=== PATIENT | male | born 1940 | race Caucasian/White ===

== ENCOUNTER 2018-11-17 09:26 | Outpatient (CLI) | payer MEDICARE, BC ==
[2018-11-09 11:09] VITALS: BMI 35.2
--- NOTE | 2018-11-17 11:44 | RAD ---
LUMBAR SPINE SERIES 4 VIEWS INCLUDING FLEXION AND EXTENSION: Date: 11/17/18 HISTORY: Back pain, difficulty walking. FINDINGS: There is moderate scoliotic change of the spine convex to the right. There is severe degenerative dis c narrowing at all of the vertebral body levels and prominent degenerative facet changes. Limited mot ion seen on either the flexion or extension views. No abnormal translation of the vertebral bodies. N o spondylolisthesis. Extensive atherosclerotic change of the aorta is noted. IMPRESSION: Scoliosis and severe arthritic changes of the spine. POS: TPC
--- NOTE | 2018-11-17 11:50 | RAD ---
CERVICAL SPINE SERIES 5 VIEWS WITH FLEXION AND EXTENSION: HISTORY: Neck and bilateral shoulder pain. FINDINGS: The vertebral bodies are normal in height. There is degenerative disk narrowing at the C5-6 and C6-7 levels. The C7 vertebral body is not well visualized on this exam. There is a minimal anterolisthe sis of C4 on C5 not definitely changing between the flexion and extension views. Degenerative facet changes are present. Vascular calcifications in the carotid bulb regions are noted. IMPRESSION: Mild arthritic changes of the cervical spine. POS: TPC
--- NOTE | 2018-11-17 12:37 | MRI ---
MRI CERVICAL SPINE WITHOUT CONTRAST: INDICATION: Bilateral shoulder pain and difficulty walking for 3 months. COMPARISON: Cervical spinal radiograph dated 11/17/2018. FINDINGS: There is mild anterior translation of C5 on C6 which his likely degenerative. Visualized posterior fossa is unremarkable-appearing. Bone marrow signal intensity appears within normal limits. Craniocervical junction on the sagittal images appears within normal limits. At C2-C3, there is a broad-based bulge with facet hypertrophy without appreciable central canal or ne ural foraminal narrowing. At C3-4, there is an asymmetric to the right broad-based disk bulge with ligamentum flavum hypertroph y inducing moderate central canal narrowing with mild ventral and posterior cord flattening. There i s uncovertebral hypertrophy and facet joint degenerative change inducing severe right and mild to mod erate left neural foraminal narrowing. At C4-5, there is uncovertebral hypertrophy and facet joint degenerative change inducing moderate to severe bilateral neural foraminal narrowing and mild central canal narrowing. At C5-6, there is facet hypertrophy and uncovertebral hypertrophy in addition to a broad-based disk b ulge inducing moderate to severe bilateral neural foraminal narrowing and mild central canal narrowin g. At C7-T1, there is an asymmetric to the right disk-osteophyte complex inducing severe right and mild left neural foraminal narrowing. IMPRESSION: 1. Moderate central canal narrowing at C3-4 due to a broad-based disk bulge and ligamentum flavum hy pertrophy causing mild cord flattening, but no definite cord signal abnormality. 2. Prominent neural foraminal narrowing seen at C3-4 through C7-T1. POS: OFF
--- NOTE | 2018-11-17 13:06 | MRI ---
MRI LUMBAR SPINE WITHOUT CONTRAST: INDICATION: Difficulty walking for 3 months. COMPARISON: Lumbar spinal radiograph dated 11/17/2018. FINDINGS: There is multilevel loss of the normal disk signal and height. There is some heterogeneous marrow si gnal intensity likely related to some red marrow hyperplasia. No enlarged lymph nodes are evident wi thin the retroperitoneum. There is dextroscoliosis of the lumbar spine. No acute fracture is demonstrated. At L5-S1, there is a broad-based disk bulge with facet hypertrophy inducing moderate central canal na rrowing with mild to moderate right and mild left neural foraminal narrowing. At L4-5, there is broad-based disk-osteophyte complex with facet joint degenerative change inducing s evere central canal narrowing with moderate to severe bilateral neural foraminal narrowing. At L3-4, there is a broad-based disk-osteophyte complex with facet joint degenerative change inducing moderate central canal narrowing and moderate left and mild right neural foraminal narrowing. At L2-3, there is a disk-osteophyte complex with facet joint degenerative change inducing mild centra l canal narrowing with moderate left and mild right neural foraminal narrowing. At L1-2, there is a broad-based disk-osteophyte complex inducing mild central canal narrowing with mi ld bilateral neural foraminal narrowing. At T12-L1, there is a mild broad-based bulge, but no appreciable central canal or neural foraminal na rrowing. IMPRESSION: 1. Multilevel central canal and neural foraminal narrowing. The central canal narrowing is most sev ere at the L4-5 and L3-4 levels. 2. Prominent multilevel neural foraminal narrowing. POS: OFF
--- NOTE | 2018-11-17 13:27 | MRI ---
MRI OF THE THORACIC SPINE WITHOUT CONTRAST: INDICATION: Bilateral shoulder pain and difficulty walking for 3 months. COMPARISON: None. FINDINGS: At the T1-T2 level, there is a broad-based disk-osteophyte complex causing mild bilateral neural fora isha narrowing. At T2-T3, there is no appreciable central canal or neural foraminal narrowing. At T3-T4, there is a small left paracentral protrusion, but no appreciable central canal or neural fo raminal narrowing. At T4-5, there is no appreciable central canal or neural foraminal narrowing. At T5-6, there is no appreciable central canal or neural foraminal narrowing. At T6-7, there is a small right paracentral disk protrusion causing mild ventral effacement of the sp inal cord without definite cord signal abnormality. At T7-8, there is a cephalad extending disk extrusion causing mild ventral effacement of the thoracic spinal cord without cord signal abnormality. At T8-T9, there is a small central protrusion. At T9-T10, there is a right paracentral cephalad-extending disk extrusion causing mild ventral efface ment of the subarachnoid space without definite cord contact. At T10-T11, there is some mild facet joint degenerative change on the right inducing mild right neura l foraminal narrowing. At T11-12, there is a broad-based bulge with facet hypertrophy inducing mild bilateral neural foramin al narrowing. At T12-L1, there is a mild broad-based bulge, but no appreciable central canal or neural foraminal na rrowing. IMPRESSION: 1. Multilevel protrusions and extrusions extending from approximately T6 through the T10 vertebral l evel. 2. Mild bilateral neural foraminal narrowing at T1-T2 and T11-T12. POS: OFF
== END 2018-11-17 09:27 | disposition home or self-care (01) ==
LOC: TBSIIMAG 09:26
PROVIDERS: ATTEND Physician Assistant Surgical
DX: M54.5 Low back pain (principal); R27.0 Ataxia, unspecified; M25.559 Pain in unspecified hip; M47.812 Spondylosis without myelopathy or radiculopathy, cervical region; M47.816 Spondylosis without myelopathy or radiculopathy, lumbar region; M41.9 Scoliosis, unspecified; M51.24 Other intervertebral disc displacement, thoracic region; M48.04 Spinal stenosis, thoracic region; M48.061 Spinal stenosis, lumbar region without neurogenic claudication; M48.02 Spinal stenosis, cervical region; M50.21 Other cervical disc displacement, high cervical region; M48.03 Spinal stenosis, cervicothoracic region
CPT/HCPCS: 72050; 72100; 72141; 72146; 72148

== ENCOUNTER 2019-01-04 10:07 | Day surgery (SDC) | payer MEDICARE, BC ==
[2019-01-04 11:04] LABS: #Basophils 0.1 thou/uL (0.0-0.2); #Eosinphils 0.5 thou/uL (0.0-0.7); #Lymphocytes 1.5 thou/uL (1.20-3.40); #Monocytes 0.6 thou/uL (0.11-0.59); #Neutrophils 3.8 thou/uL (1.40-6.50); %Basophils 1.2 % (0.0-1.0); %Eosinophils 7.8 % (0.0-10.0); %Lymphocytes 22.8 % (21.0-51.0); %Monocytes 8.5 % (0.0-10.0); %Neutrophils 59.7 % (42.0-75.0); Hemoglobin 15.6 g/dL (14.0-18.0); Mean Corpuscular HGB CONC 34.3 g/dL (32.0-36.0); Mean Corpuscular Hemoglobin 30.5 pg (27.0-31.0); Mean Corpuscular Volume 88.9 fL (78.0-98.0); Mean Platelet Volume 7.2 fL (7.4-10.4); Platelet Count 183 thou/uL (130-400); RBC Distribution Width 12.2 % (11.5-14.5); Red Blood Cell (RBC) Count 5.11 mill/uL (4.70-6.10); White Blood Cell (WBC) Count 6.4 thou/uL (4.8-10.8)
[2019-01-04 11:12] LABS: PTT 33.5 SEC (22.9-36.1); Prothrombin Time 13.2 SEC (12.0-14.7)
[2019-01-04 11:28] LABS: Anion Gap 13 mmol/L (10-20); BUN (Urea Nitrogen) 16 mg/dL (8.4-25.7); Calc. Creatinine Clearance 107 mL/min (70-130); Calcium 10.2 mg/dL (7.8-10.44); Carbon Dioxide 29 mmol/L (23-31); Chloride 100 mmol/L (98-107); Estimated GFR-MDRD 78; Glucose 127 mg/dL (83-110); Potassium 4.5 mmol/L (3.5-5.1); Sodium 137 mmol/L (136-145)
[2019-01-04] MEDS ORDERED: Fentanyl 100 MCG/2 ML VIAL ONE ×4 (12:48→16:41)
[2019-01-04] MEDS ORDERED: Ondansetron HCl/PF 4 MG/2 ML Vial IVP PRN (13:04)
[2019-01-04] MEDS ORDERED: Sodium Chloride 0.9% 10 ML ONE (13:16)
[2019-01-04] MEDS ORDERED: Thrombin 5000 UNITS/5 ML VIAL ONE (13:16)
[2019-01-04] MEDS ORDERED: traMADol HCl 50 MG TAB PO PRN (15:57)
[2019-01-04] MEDS ORDERED: Acetaminophen/Codeine 30-300mg Tablet PO PRN (15:57)
[2019-01-04] MEDS ORDERED: tiZANidine HCl 4 MG TAB PO PRN (15:57)
[2019-01-04] MEDS ORDERED: Milk Of Magnesia 30 ML UDCUP PO PRN (15:57)
[2019-01-04] MEDS ORDERED: Bisacodyl 10 MG SUPP PR PRN (15:57)
[2019-01-04] MEDS ORDERED: Acetaminophen 325 MG TAB PO PRN (15:57)
[2019-01-04] MEDS ORDERED: Ondansetron PF 4 MG/2 ML Vial IVP PRN (15:57)
[2019-01-04] MEDS ORDERED: Fleet Enema 133 ML BOT PR PRN (15:57)
[2019-01-04] MEDS ORDERED: Morphine 2 MG/ML SYRINGE SLOW IVP PRN (15:57)
[2019-01-04] MEDS ORDERED: HYDROcodone/Acetaminophen 7.5/325 mg Tablet PO PRN (15:57)
[2019-01-04] MEDS ORDERED: Mag-Al 1200 mg/1200 mg/30 ML UDCUP PO PRN (15:57)
[2019-01-04] MEDS: Sodium Chloride 0.9% 1,000 ML IV SCH (16:00)
[2019-01-04] MEDS: metFORMIN 500 MG TAB PO SCH (17:00)
[2019-01-04] MEDS ORDERED: Labetalol HCl 100 MG/20 ML VIAL ONE (17:00)
[2019-01-04] MEDS ORDERED: CEFAZOLIN 2 GM in Premix Bag 1 BAG IVPB SCH (19:00)
[2019-01-04] MEDS: Magnesium Oxide 400 MG TAB PO SCH (20:48)
[2019-01-04] MEDS: Atorvastatin Calcium 10 MG TAB PO SCH (20:48)
[2019-01-04] MEDS ORDERED: POTASSIUM CITRATE 15 MEQ PO SCH (21:00)
[2019-01-04] MEDS: CEFAZOLIN 2 GM in Premix Bag 1 BAG IVPB SCH (22:49)
[2019-01-05] MEDS ORDERED: Tamsulosin HCl 0.4 MG CAP PO SCH ×3 (00:45→21:00)
--- NOTE | 2019-01-05 06:50 | OP ---
DATE OF PROCEDURE: 01/04/2019 PREPROCEDURE DIAGNOSES: Cervical stenosis with myelopathy C3-C4. POSTPROCEDURE DIAGNOSES: Cervical stenosis with myelopathy C3-C4. PROCEDURES PERFORMED: 1. Anterior C3-C4 diskectomy for decompression of spinal cord nerve roots. 2. Preparation of endplates, placement of interbody spacer packed with local bone autograft obtained at same incision, and allograft C3-C4 for arthrodesis. 3. Anterior cervical plate and screw fixation, C3-C4. 4. Use of operative microscope for microdissection. DESCRIPTION OF PROCEDURE: After informed consent was obtained from the patient, the patient was brought to the OR. Proper patient, pause, and identification were carried out. He was placed under excellent endotracheal anesthesia and positioned supine on the OR table. Right linear gilson was made in the neck crease to allow for approach to C3-C4 segment. This region was sterilely cleansed, prepared, and draped. Proper patient, pause, identification were carried out. The wound was then opened in a combination of sharp, monopolar, and blunt dissection. We proceeded medial to the laryngeal pharyngeal bundle, medial to the right carotid sheath, we identified the prevertebral layer of deep cervical fascia. Retractors were placed. The longus colli muscle was swept laterally. Localization film confirmed our area of interest. We then performed distraction at C3-C4. The microscope was brought in for microdissection as C3-C4 diskectomy was performed with decompression of spinal cord nerve roots. We then maximized hemostasis throughout. An interbody spacer appropriate dimension was placed at C3-C4 and plate and screws were placed. Final tightening, copious irrigation occurred throughout as did maximizing hemostasis. The wound was then closed in anatomic layers over drain. The patient emerged from anesthesia. Job ID: [id number]
[2019-01-05 07:24] VITALS: BMI 34.4
[2019-01-05] MEDS: Lisinopril/Hydrochlorothiazide 20 mg/12.5 mg Tablet PO SCH (08:01)
[2019-01-05] MEDS: metFORMIN 500 MG TAB PO SCH ×2 (08:01→17:46)
[2019-01-05] MEDS: CEFAZOLIN 2 GM in Premix Bag 1 BAG IVPB SCH ×3 (08:02→22:26)
--- NOTE | 2019-01-05 08:02 | RAD ---
Intraoperative imaging of the cervical spine: 01/04/2019 HISTORY: ACDF FINDINGS: 2 coned down radiographs of the cervical spine are provided, obtained during surgery. Provi ded images demonstrate placement of anterior discectomy and fusion hardware at the C3-4 level. IMPRESSION: Intraoperative imaging as above.
[2019-01-05] MEDS ORDERED: Prevnar 13-Val Conj/PF 0.5 ML SYRINGE IM ONE (08:15)
[2019-01-05] MEDS ORDERED: FLU VACC TS2019-20(65YR UP)/PF 180 MCG/0.5 ML SYRINGE IM ONE (08:15)
[2019-01-05] MEDS ORDERED: Dexamethasone 6 MG in Sodium Chloride 0.9% 50 ML IVPB SCH (09:00)
--- NOTE | 2019-01-05 09:41 | PRG ---
DATE OF SERVICE: 01/05/2019 This is Donato Rowell PA-C dictating a report for Rosalio Dozier MD. Mr. Lopez is postoperative day #1 having undergone C3-[address] Dozier. The patient's surgery was without complication and a drain was placed. The patient has good improvement in his posterior neck pain as well as in his bilateral upper extremity arm aching. He has had resolution of right shoulder pain. He has not yet up been walking because he has not had his Byram J collar fitted. Nursing has contacted for this to be fitted this morning. He may begin to ambulate and work with therapies once the collar is in place. The patient is complaining of some significant hoarseness and swallowing difficulties. He is also complaining of reflux. I have started him on Protonix and he did get one dose of 6 mg of Decadron. I have repeated this, this morning as a one time dose. He has had some urinary retention. I have ordered bladder scans and I ordered for Garcia should this be required after the third in and out catheterization if there are more than 300 mL in his bladder. I have also initiated daily Flomax. The patient likely will benefit from inpatient rehab and the paperwork and consults have been placed. The patient remains with excellent strength in all the extremities although he does have some dysphonia on exam. His drain output has been rather minimal, but will leave this in place as the patient will be staying at least one more overnight. Please call with any changes in patient's neurologic status. Otherwise, we will ask the patient to continue to heal postoperatively. Job ID: [id number]
[2019-01-05] MEDS: Pantoprazole 40 MG VIAL IVP SCH (10:14)
[2019-01-05] MEDS: Atorvastatin Calcium 10 MG TAB PO SCH (21:46)
[2019-01-05] MEDS: Sodium Chloride 0.9% 1,000 ML IV SCH (21:47)
[2019-01-05] MEDS: Magnesium Oxide 400 MG TAB PO SCH (21:47)
[2019-01-06] MEDS: CEFAZOLIN 2 GM in Premix Bag 1 BAG IVPB SCH (04:55)
[2019-01-06] MEDS: metFORMIN 500 MG TAB PO SCH (07:53)
[2019-01-06] MEDS: Lisinopril/Hydrochlorothiazide 20 mg/12.5 mg Tablet PO SCH (07:53)
[2019-01-06] MEDS: Pantoprazole 40 MG VIAL IVP SCH (07:53)
[2019-01-06 12:19] VITALS: BP 115/71; TEMP 97.8
--- NOTE | 2019-01-09 07:47 | DIS ---
DATE OF ADMISSION: 01/04/2019 DATE OF DISCHARGE: 01/06/2019 This is Candace Gerard PA-C dictating a report for Rosalio Dozier MD. The patient is a 78-year-old male, recently known to Dr. Dozier service for significant cervical stenosis with cervical myelopathy, who underwent C3 through C4 ACDF on 01/04/2019. Following the surgery, he was transitioned to the Med/Surg floor, where his pain has been well controlled with p.o. medications, he is tolerating regular diet. He did have some issues with urinary retention, which required a postop placement of a Garcia. He was started on Flomax. He had significant improvement in his walking and had worked with Physical Therapy. He was walking up and down the halls without significant difficulty. He had been compliant with his cervical collar. On my exam this morning, the patient is awake, alert, in no acute distress. His SOO drain output has trended down and only had 30 mL overnight. He has free active range of motion in all extremities. No focal motor weakness is appreciated on my exam in the bed. His SOO drain is trending downwards and we will remove today on postoperative day #2. I have discussed his urinary retention with his urologist, Dr. Carri retana in [place] and the patient is to call Tuesday to set a followup appointment for recheck and possible removal of Garcia as outpatient in their office. I will discharge him on [place] and Flomax. The patient is to follow up with Dr. Dozier in approximately 2 weeks. I have discussed home care precautions. It is of note that initially we had planned to send him to inpatient rehab, but the patient is doing so well postoperatively that he preferred to go home and therefore this was arranged. Job ID: [id number]
--- NOTE | 2019-01-09 10:25 | EKG ---
Test Reason : PREOP Blood Pressure : / mmHG Vent. Rate : 059 BPM Atrial Rate : 059 BPM P-R Int : 238 ms QRS Dur : 106 ms QT Int : 424 ms P-R-T Axes : 021 -05 073 degrees QTc Int : 419 ms Sinus bradycardia with 1st degree A-V block Otherwise normal ECG When compared with ECG of 10-JAN-1995 14:16, TN interval has increased Confirmed by MISSY RÍOS, DEBRA ([id number]) on 01/09/2019 10:25:20 AM Referred By: WILLIAM Confirmed By:DEBRA LOUIS MD
== END 2019-01-06 13:31 | disposition home or self-care (01) ==
LOC: SDC 10:07 → SURG B 18:31 → SDC 01-06 13:31
PROVIDERS: ATTEND Surgery
PROC: 0RG10A0 Fusion of Cervical Vertebral Joint with Interbody Fusion Device, Anterior Approach, Anterior Column, Open Approach (ICD-10-PCS; principal; 2019-01-04)
PROC: 0RT30ZZ Resection of Cervical Vertebral Disc, Open Approach (ICD-10-PCS; 2019-01-04)
DX: M48.02 Spinal stenosis, cervical region (principal); G95.89 Other specified diseases of spinal cord; M54.12 Radiculopathy, cervical region; I10 Essential (primary) hypertension; E78.5 Hyperlipidemia, unspecified; Z87.891 Personal history of nicotine dependence; Z79.1 Long term (current) use of non-steroidal anti-inflammatories (NSAID); Z79.82 Long term (current) use of aspirin; Z79.84 Long term (current) use of oral hypoglycemic drugs; Z79.899 Other long term (current) drug therapy
CPT/HCPCS: 20930; 20936; 22551; 22845; 22853; 76000; 80048; 82962; 85025; 85610; 85730; 90662; 93005; 97116 ×2; 97139 ×3; 97535; C1713; C1776; G0008; 36416; 90471; 93010; C9113; J0690; J1100; J3010; J3490

== ENCOUNTER 2019-04-04 08:53 | Outpatient (CLI) | payer MEDICARE, BC ==
--- NOTE | 2019-04-04 10:41 | RAD ---
CERVICAL SPINE THREE VIEWS: HISTORY: Bilateral shoulder pain. Difficulty walking. Prior ACDF. FINDINGS: Anterior cervical fusion changes are noted involving C3-C4. C6, C7 and T1 are obscured or partially o bscured on the lateral view and the odontoid and C1 are partially obscured on the AP open-mouth view. No significant change in alignment. No abnormal soft tissue swelling. IMPRESSION: Anterior cervical fusion changes at C3-C4. POS: OFF
== END 2019-04-04 08:54 | disposition home or self-care (01) ==
LOC: TBSIIMAG 08:53
PROVIDERS: ATTEND Surgery
DX: M50.00 Cervical disc disorder with myelopathy, unspecified cervical region (principal); Z98.1 Arthrodesis status
CPT/HCPCS: 72040

== ENCOUNTER 2019-04-27 06:07 | Inpatient (IN) | payer MEDICARE, BC ==
[2019-04-26 10:40] VITALS: BMI 35.8
[2019-04-27] MEDS ORDERED: Fentanyl 250 MCG/5 ML VIAL ONE (06:52)
[2019-04-27 07:05] LABS: Hemoglobin 14.9 g/dL (14.0-18.0); Mean Corpuscular HGB CONC 34.7 g/dL (32.0-36.0); Mean Corpuscular Hemoglobin 30.7 pg (27.0-31.0); Mean Corpuscular Volume 88.5 fL (78.0-98.0); Mean Platelet Volume 7.3 fL (7.4-10.4); Platelet Count 156 thou/uL (130-400); RBC Distribution Width 11.8 % (11.5-14.5); Red Blood Cell (RBC) Count 4.86 mill/uL (4.70-6.10); White Blood Cell (WBC) Count 6.1 thou/uL (4.8-10.8)
[2019-04-27 07:08] LABS: PTT 33.8 SEC (22.9-36.1); Prothrombin Time 12.7 SEC (12.0-14.7)
[2019-04-27] MEDS ORDERED: Sodium Chloride 0.9% 10 ML ONE (07:09)
[2019-04-27] MEDS ORDERED: Thrombin 5000 UNITS/5 ML VIAL ONE (07:09)
[2019-04-27 07:22] LABS: Anion Gap 16 mmol/L (10-20); BUN (Urea Nitrogen) 21 mg/dL (8.4-25.7); Calc. Creatinine Clearance 108 mL/min (70-130); Calcium 9.5 mg/dL (7.8-10.44); Carbon Dioxide 26 mmol/L (23-31); Chloride 102 mmol/L (98-107); Estimated GFR-MDRD 79; Glucose 142 mg/dL (83-110); Potassium 4.6 mmol/L (3.5-5.1); Sodium 139 mmol/L (136-145)
[2019-04-27] MEDS ORDERED: Ondansetron PF 4 MG/2 ML Vial ONE (10:09)
[2019-04-27] MEDS ORDERED: Lidocaine 1% PF 5 ML VIAL ONE (10:09)
[2019-04-27] MEDS ORDERED: Glycopyrrolate 0.2 MG/ML 5 ML SYRINGE ONE (10:09)
[2019-04-27] MEDS ORDERED: PHENYLEPHRINE-NS 100 MCG/ML 10 ML SYRINGE ONE (10:09)
[2019-04-27] MEDS ORDERED: Dexamethasone 20 MG/5 ML VIAL ONE (10:09)
[2019-04-27] MEDS ORDERED: EPHEDRINE 25 MG/5 ML SYRINGE ONE (10:09)
[2019-04-27] MEDS ORDERED: Rocuronium Bromide 10 MG/ML (10ML VIAL) ONE (10:09)
[2019-04-27] MEDS ORDERED: Bisacodyl 10 MG SUPP PR PRN (11:33)
[2019-04-27] MEDS ORDERED: Fleet Enema 133 ML BOT PR PRN (11:33)
[2019-04-27] MEDS ORDERED: Milk Of Magnesia 30 ML UDCUP PO PRN (11:33)
[2019-04-27] MEDS ORDERED: Acetaminophen 325 MG TAB PO PRN (11:33)
[2019-04-27] MEDS ORDERED: Mag-Al 1200 mg/1200 mg/30 ML UDCUP PO PRN (11:33)
[2019-04-27] MEDS ORDERED: traMADol HCl 50 MG TAB PO PRN (11:33)
[2019-04-27] MEDS ORDERED: Promethazine HCl 25 MG/ML VIAL SLOW IVP PRN (11:41)
[2019-04-27] MEDS ORDERED: Promethazine HCl 25 MG/ML VIAL IM PRN (11:41)
[2019-04-27] MEDS ORDERED: Ondansetron HCl/PF 4 MG/2 ML Vial IVP PRN (11:41)
[2019-04-27] MEDS ORDERED: Fentanyl 100 MCG/2 ML VIAL ONE ×2 (11:52→12:23)
--- NOTE | 2019-04-27 11:53 | OP ---
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 POSTPROCEDURE DIAGNOSIS: L2-S1 stenosis with low back and leg pain with neurogenic claudication. PROCEDURES: L2-L3, L3-L4, L4-L5, L5-S1 laminectomies, partial facetectomies, and foraminotomies. DESCRIPTION OF PROCEDURE: After informed consent was obtained from the patient, the patient was brought to the OR. Proper patient, pause, and identification were carried out. He was positioned prone on the OR table after anesthesia and a linear gilson made over the L2-S1 dorsal spines. This region was sterilely cleansed, prepared, and draped. Proper patient, pause, and identification were carried out. The wound was then opened with a combination of sharp, monopolar, and blunt dissection. The P7-A8-J3-L5-S1 dorsal spines and lamina were exposed. Localization film confirmed area of interest. We then performed Y1-R2-R7-L5-S1 laminectomies, partial facetectomies, foraminotomies with excellent decompression of the common dural tube and nerve roots. There was no spinal fluid leak. Copious irrigation. Hemostasis occurred throughout. We then closed the wound in anatomic layers following sprinkling of vancomycin powder. The patient emerged from anesthesia. Job ID: [id number]
[2019-04-27] MEDS: Sodium Chloride 0.9% 1,000 ML IV SCH (13:45)
[2019-04-27] MEDS: HYDROcodone/Acetaminophen 7.5/325 mg Tablet PO PRN (14:56)
[2019-04-27] MEDS: CEFAZOLIN 2 GM in Premix Bag 1 BAG IVPB SCH ×2 (15:37→22:58)
[2019-04-27] MEDS: Acetaminophen/Codeine 30-300mg Tablet PO PRN ×2 (17:41→21:52)
[2019-04-27] MEDS: Ondansetron PF 4 MG/2 ML Vial IVP PRN (18:28)
[2019-04-27] MEDS: Morphine 2 MG/ML SYRINGE SLOW IVP PRN ×2 (20:00→22:54)
[2019-04-27] MEDS: Magnesium Oxide 400 MG TAB PO SCH (20:00)
[2019-04-27] MEDS: Atorvastatin Calcium 10 MG TAB PO SCH (20:00)
[2019-04-27] MEDS: Tamsulosin HCl 0.4 MG CAP PO SCH (20:00)
[2019-04-27] MEDS ORDERED: POTASSIUM CITRATE 15 MEQ PO SCH (21:00)
[2019-04-27] MEDS: tiZANidine HCl 4 MG TAB PO PRN (21:52)
[2019-04-28] MEDS: Sodium Chloride 0.9% 1,000 ML IV SCH ×2 (01:03→20:37)
[2019-04-28] MEDS: HYDROcodone/Acetaminophen 7.5/325 mg Tablet PO PRN ×3 (02:18→13:10)
[2019-04-28] MEDS: Lisinopril/Hydrochlorothiazide 20 mg/12.5 mg Tablet PO SCH (08:19)
[2019-04-28] MEDS: metFORMIN 500 MG TAB PO SCH (08:20)
--- NOTE | 2019-04-28 12:03 | PRG ---
DATE OF SERVICE: 04/28/2019 Mr. Lopez is postoperative day #1 from lumbar decompression. He is doing well except he has urinary retention. We will place the Garcia catheter. We will mobilize him today. Hopefully, he can be dismissed tomorrow. Job ID: [id number]
[2019-04-28] MEDS: Ondansetron PF 4 MG/2 ML Vial IVP PRN ×2 (12:31→16:41)
[2019-04-28] MEDS ORDERED: Promethazine HCl 12.5 MG in Sodium Chloride 0.9% 50 ML IVPB PRN (17:47)
[2019-04-28] MEDS: Atorvastatin Calcium 10 MG TAB PO SCH (20:37)
[2019-04-28] MEDS: Tamsulosin HCl 0.4 MG CAP PO SCH (20:37)
[2019-04-28] MEDS: Magnesium Oxide 400 MG TAB PO SCH (20:37)
[2019-04-28] MEDS: Morphine 2 MG/ML SYRINGE SLOW IVP PRN (23:42)
[2019-04-29] MEDS: Acetaminophen/Codeine 30-300mg Tablet PO PRN (04:16)
[2019-04-29] MEDS: tiZANidine HCl 4 MG TAB PO PRN ×2 (04:16→15:25)
[2019-04-29] MEDS: metFORMIN 500 MG TAB PO SCH (08:34)
[2019-04-29] MEDS: Lisinopril/Hydrochlorothiazide 20 mg/12.5 mg Tablet PO SCH (08:34)
--- NOTE | 2019-04-29 10:59 | PRG ---
DATE OF SERVICE: 04/29/2019 Mr. Lopez is postoperative day #1 after undergoing L2 - S1 lumbar laminectomies for decompression of lumbar stenosis. He is not passing gas and no bowel movements since surgery. Minimal oral intake over the last 2 days. He was found to have an ileus. At this time, we have initiated a trauma bowel protocol with hopes that we can forego placement of an NG tube. We have discontinued his Tylenol with codeine in hopes that decreasing narcotic pain medications will improve his bowel symptoms. We hope that the patient can continue to work on mobilization with physical therapy. At this time, we have put in a consult with case management and the patient will likely need inpatient rehab prior to going home. He does report some discomfort in his lower back, but denies any leg pain. He has been moving his legs without difficulty. He has good strength throughout his bilateral lower extremities. Sensation intact. He remains neurologically stable. We will re-evaluate the patient in the morning. Please call for any neurologic changes or other concerns. Job ID: [id number] MTDD
[2019-04-29] MEDS: Sodium Chloride 0.9% 1,000 ML IV SCH ×2 (14:32→21:59)
[2019-04-29] MEDS: HYDROcodone/Acetaminophen 7.5/325 mg Tablet PO PRN (19:37)
[2019-04-29] MEDS: Atorvastatin Calcium 10 MG TAB PO SCH (19:38)
[2019-04-29] MEDS: Magnesium Oxide 400 MG TAB PO SCH (19:38)
[2019-04-29] MEDS: Tamsulosin HCl 0.4 MG CAP PO SCH (19:38)
[2019-04-30] MEDS: HYDROcodone/Acetaminophen 7.5/325 mg Tablet PO PRN ×2 (02:31→08:24)
[2019-04-30] MEDS: Sodium Chloride 0.9% 1,000 ML IV SCH ×2 (05:21→20:12)
[2019-04-30] MEDS: Ondansetron PF 4 MG/2 ML Vial IVP PRN ×2 (08:21→17:25)
[2019-04-30] MEDS: Lisinopril/Hydrochlorothiazide 20 mg/12.5 mg Tablet PO SCH (08:23)
[2019-04-30] MEDS: metFORMIN 500 MG TAB PO SCH (08:24)
--- NOTE | 2019-04-30 09:04 | PRG ---
DATE OF SERVICE: 04/30/2019 This is Donato Rowell PA-C dictating a report for Rosalio Dozier MD. Mr. Lopez is postoperative day #3, having undergone multilevel lumbar laminectomies. He is passing some wind. He has not had any vomiting over the past 24 hours. He does have some episodes of nausea, but he has been able to keep down some liquids. He has been minimally ambulating. Neurologically he remains intact with good strength in the bilateral lower extremities. He remains with a Garcia catheter in place. We will continue to monitor his neurologic status, but he is ready for inpatient rehab at anytime. I highly suspect that he has resolving postoperative ileus, as again he is passing wind and he is on aggressive bowel regimen to help with bowel movement. He can continue to work with therapies and again is ready for discharge to inpatient rehab when arrangements have been made. Job ID: [id number]
[2019-04-30] MEDS: Atorvastatin Calcium 10 MG TAB PO SCH (20:13)
[2019-04-30] MEDS: Magnesium Oxide 400 MG TAB PO SCH (20:13)
[2019-04-30] MEDS: Tamsulosin HCl 0.4 MG CAP PO SCH (20:13)
[2019-05-01 01:05] VITALS: TEMP 98.6
--- NOTE | 2019-05-01 09:18 | PRG ---
DATE OF SERVICE: 05/01/2019 This is Donato Rowell PA-C dictating a report for Rosaloi Dozier MD. Mr. Lopez is postoperative day #4 having undergone multilevel lumbar laminectomy. The patient had four bowel movements yesterday and is feeling better in this regard. He has had no further nausea and no vomiting. He has been up walking with therapies. He remains with good strength in the bilateral lower extremities. The incisional dressing is clean and dry. When this is removed dry blood along the Steri-Strips, but there is no active drainage, and the incision is healing well. The patient is stable for discharge, and we will discuss with Case Management getting him to [facility] progressive therapies as he will benefit greatly from this. Please call with any changes in the patient's neurologic status. Job ID: [id number]
[2019-05-01] MEDS: metFORMIN 500 MG TAB PO SCH (09:22)
[2019-05-01] MEDS: Sodium Chloride 0.9% 1,000 ML IV SCH (09:22)
[2019-05-01] MEDS: Lisinopril/Hydrochlorothiazide 20 mg/12.5 mg Tablet PO SCH (09:22)
[2019-05-01 11:54] VITALS: BP 119/73
== END 2019-05-01 15:00 | DRG 516 ==
LOC: SDC 06:07 → SURG A 13:39 → SDC 04-30 16:31
PROVIDERS: ADMIT Surgery; ATTEND Surgery
PROC: 01NB0ZZ Release Lumbar Nerve, Open Approach (ICD-10-PCS; principal; 2019-04-27)
PROC: 01NR0ZZ Release Sacral Nerve, Open Approach (ICD-10-PCS; 2019-04-27)
DX: M48.062 Spinal stenosis, lumbar region with neurogenic claudication (principal); K56.7 Ileus, unspecified; M48.07 Spinal stenosis, lumbosacral region; Z96.653 Presence of artificial knee joint, bilateral; M10.9 Gout, unspecified; E78.5 Hyperlipidemia, unspecified; I10 Essential (primary) hypertension; E11.9 Type 2 diabetes mellitus without complications; R33.8 Other retention of urine; E66.9 Obesity, unspecified; N40.1 Benign prostatic hyperplasia with lower urinary tract symptoms; Z98.1 Arthrodesis status; Z87.891 Personal history of nicotine dependence; Z85.828 Personal history of other malignant neoplasm of skin; Z68.35 Body mass index [BMI] 35.0-35.9, adult; Z79.899 Other long term (current) drug therapy; Z79.82 Long term (current) use of aspirin; Z79.84 Long term (current) use of oral hypoglycemic drugs; Z79.1 Long term (current) use of non-steroidal anti-inflammatories (NSAID)
CPT/HCPCS: 36415; 76000; 80048; 85027; 85610; 85730; 93005; 93010; J0690; J1100; J2001; J2270; J2405; J2550; J3010; J3370; J3490

== ENCOUNTER 2019-09-17 11:18 | Outpatient (CLI) | payer MEDICARE, BC, OTHER ==
[2019-09-18 13:12] LABS: SARS-CoV-2 MS2 Positive; SARS-CoV-2 N Gene Negative; SARS-CoV-2 S Gene Negative; SARS-CoV-2 orf1ab Negative
== END 2019-09-17 11:19 | disposition home or self-care (01) ==
LOC: LABSCS 11:18
PROVIDERS: ATTEND Otolaryngology Plastic Surgery within the Head & Neck
DX: Z01.812 Encounter for preprocedural laboratory examination (principal); Z11.59 Encounter for screening for other viral diseases; I69.891 Dysphagia following other cerebrovascular disease; R13.14 Dysphagia, pharyngoesophageal phase
CPT/HCPCS: 87635; U0003

== ENCOUNTER 2019-09-20 12:41 | Outpatient (CLI) | payer MEDICARE, BC | END 2019-09-20 12:42 | disposition home or self-care (01) | PROVIDERS: ATTEND Otolaryngology Plastic Surgery within the Head & Neck | DX: R13.14 Dysphagia, pharyngoesophageal phase (principal); Z98.1 Arthrodesis status | CPT/HCPCS: 74230 ==